=== PATIENT | female | born 1985 | race Caucasian/White ===

== ENCOUNTER 2018-10-16 12:10 | Outpatient (CLI) | payer MEDICAID | END 2018-10-16 14:34 | disposition left against medical advice (07) | LOC: OBT 12:10 → L-D 12:10 → OBT 14:34 | DX: O36.8130 Decreased fetal movements, third trimester, not applicable or unspecified (principal); Z3A.01 Less than 8 weeks gestation of pregnancy | CPT/HCPCS: 76815; 76818 ==